=== PATIENT | female | born 2000 | race African-American/Black ===

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

== ENCOUNTER 2018-02-21 04:46 | Emergency (ER) | payer OTHER ==
[~2018-02-21] VITALS: Ht 160 cm; Wt 77.1 kg
[~2018-02-21 04:46] MED LIST changes: +PREDNISONE 20 M20 MG PO; +ZYRTEC10 M2 PO
[2018-02-21 06:11] VITALS: BP 119/71
== END 2018-02-21 06:12 | disposition home or self-care (01) ==
LOC: ER 04:46
DX: J06.9 Acute upper respiratory infection, unspecified (principal); J45.901 Unspecified asthma with (acute) exacerbation; R51 Headache

== ENCOUNTER 2018-07-16 09:19 | Emergency (ER) | payer OTHER ==
[~2018-07-16] VITALS: Ht 162.6 cm; Wt 83.9 kg
[2018-07-16 09:51] LABS: URINE BILIRUBIN NEGATIVE (Negative); URINE BLOOD NEGATIVE (Negative); URINE CLARITY CLEAR; URINE COLOR YELLOW; URINE GLUCOSE-RANDOM* NEGATIVE (Negative); URINE KETONES 1+ (Negative); URINE LEUKOCYTES-REFLEX NEGATIVE (Negative); URINE NITRITE-REFLEX NEGATIVE (Negative); URINE PROTEIN (DIPSTICK) TRACE (Negative); URINE SPECIFIC GRAVITY 1.015 (1.005-1.035); URINE UROBILINOGEN 0.2 E.U./dl (0.2-1.0)
[2018-07-16 10:48] LABS: ABSOLUTE NEUTROPHILS 8.1 thou/uL (1.4-8.2); BASOPHILS 0.4 % (0.0-2.0); EOSINOPHILS 1.5 % (0.0-3.0); HEMATOCRIT 39.2 % (37.0-47.0); HEMOGLOBIN 13.1 gm/dL (12.0-15.0); LYMPHOCYTES 17.7 % (24.0-44.0); MCH 29.6 pg (26.0-34.0); MCHC 33.5 g/dL (28.0-37.0); MCV 88.6 fL (80.0-100.0); MONOCYTES 5.6 % (1.0-8.0); PLATELET COUNT 257 thou/uL (150-400); POLYS 74.8 % (36.0-66.0); RBC 4.42 mil/uL (4.20-5.00); RDW 15.1 % (10.5-14.5); WBC 10.9 thou/uL (4.0-11.0)
[2018-07-16 10:51] LABS: CALCIUM 8.7 mg/dL (8.5-10.1); CREATININE 0.7 mg/dL (0.6-1.0); POTASSIUM 3.8 mmol/L (3.5-5.1)
[2018-07-16 10:57] LABS: ALBUMIN 3.8 g/dL (3.4-5.0); TOTAL BILIRUBIN 0.5 mg/dL (<0.1-1.0); TOTAL PROTEIN 7.7 g/dL (6.4-8.2)
[2018-07-16] MEDS ORDERED: PHENERGAN 25 MG25 M1 PO (13:15)
[2018-07-16] MEDS ORDERED: VENTOLIN HFA 1818 GM INH (13:15)
[2018-07-16] MEDS ORDERED: VITAFOL-OB+DHA1 EACH PO (13:15)
[2018-07-16 13:23] VITALS: BP 113/60
== END 2018-07-16 13:24 | disposition home or self-care (01) ==
LOC: ER 09:19
PROVIDERS: Emergency Medicine; Physician Assistant
DX: O21.8 Other vomiting complicating pregnancy (principal); O26.891 Other specified pregnancy related conditions, first trimester; R19.7 Diarrhea, unspecified; R10.84 Generalized abdominal pain; O99.89 Other specified diseases and conditions complicating pregnancy, childbirth and the puerperium; M54.5 Low back pain; Z3A.01 Less than 8 weeks gestation of pregnancy

== ENCOUNTER 2019-04-03 11:19 | Emergency (ER) | payer OTHER ==
[~2019-04-03] VITALS: Ht 165.1 cm; Wt 78.0 kg
[~2019-04-03 11:19] MED LIST changes: +PHENERGAN 25 MG25 M1 PO; +VENTOLIN HFA 1818 GM INH; +VITAFOL-OB+DHA1 EACH PO
[2019-04-03] MEDS ORDERED: BIRTH CONTROL (12:02)
[2019-04-03 14:01] LABS: ABSOLUTE NEUTROPHILS 12.8 thou/uL (1.4-8.2); BASOPHILS 0.3 % (0.0-2.0); EOSINOPHILS 0.3 % (0.0-3.0); HEMATOCRIT 37.8 % (37.0-47.0); HEMOGLOBIN 12.2 gm/dL (12.0-15.0); LYMPHOCYTES 6.8 % (24.0-44.0); MCH 28.6 pg (26.0-34.0); MCHC 32.4 g/dL (28.0-37.0); MCV 88.2 fL (80.0-100.0); MONOCYTES 4.4 % (1.0-8.0); PLATELET COUNT 229 thou/uL (150-400); POLYS 88.2 % (36.0-66.0); RBC 4.28 mil/uL (4.20-5.00); RDW 14.5 % (10.5-14.5); WBC 14.6 thou/uL (4.0-11.0)
[2019-04-03 14:03] LABS: URINE BLOOD 1+ (Negative); URINE CLARITY CLEAR; URINE COLOR YELLOW; URINE GLUCOSE-RANDOM* NEGATIVE (Negative); URINE KETONES 3+ (Negative); URINE LEUKOCYTES-REFLEX TRACE (Negative); URINE NITRITE-REFLEX NEGATIVE (Negative); URINE PROTEIN (DIPSTICK) 1+ (Negative); URINE SPECIFIC GRAVITY 1.025 (1.005-1.035)
[2019-04-03 14:06] LABS: ICTOTEST (BILI CONFIRMATORY) Negative (Negative); URINE BILIRUBIN NEGATIVE (Negative)
[2019-04-03 14:11] LABS: CALCIUM 8.8 mg/dL (8.5-10.1); POTASSIUM 3.2 mmol/L (3.5-5.1)
[2019-04-03 14:18] LABS: BACTERIA-REFLEX None Seen /HPF (None Seen); CASTS None Seen /LPF (None Seen); CRYSTALS None Seen /LPF (None Seen); MUCUS >6 Heavy strn/LPF (None Seen); SQUAMOUS None Seen /LPF (0-3); URINE RBC 3-10 Few /HPF (0-2); URINE WBC-REFLEX 0-5 Rare /HPF (0-5)
[2019-04-03] MEDS ORDERED: ZOFRAN ODT4 MG DISSOLVE (15:40)
[2019-04-03] MEDS ORDERED: ZPAK PO (15:40)
[2019-04-03 15:44] VITALS: BP 117/66
== END 2019-04-03 15:46 | disposition home or self-care (01) ==
LOC: ER 11:19
PROVIDERS: Physician Assistant
DX: J18.9 Pneumonia, unspecified organism (principal); E86.0 Dehydration; R11.2 Nausea with vomiting, unspecified; F17.200 Nicotine dependence, unspecified, uncomplicated; Z98.890 Other specified postprocedural states; Z91.010 Allergy to peanuts

== ENCOUNTER 2019-06-17 04:03 | Emergency (ER) | payer OTHER ==
[~2019-06-17] VITALS: Ht 162.6 cm; Wt 74.8 kg
[~2019-06-17 04:03] MED LIST changes: +BIRTH CONTROL; +ZOFRAN ODT4 MG DISSOLVE; +ZPAK PO
[2019-06-17 05:09] LABS: URINE BILIRUBIN NEGATIVE (Negative); URINE BLOOD NEGATIVE (Negative); URINE CLARITY CLEAR; URINE COLOR YELLOW; URINE GLUCOSE-RANDOM* NEGATIVE (Negative); URINE KETONES NEGATIVE (Negative); URINE LEUKOCYTES-REFLEX TRACE (Negative); URINE NITRITE-REFLEX NEGATIVE (Negative); URINE PROTEIN (DIPSTICK) NEGATIVE (Negative); URINE UROBILINOGEN 0.2 E.U./dl (0.2-1.0)
[2019-06-17 05:26] LABS: ALBUMIN 3.2 g/dL (3.4-5.0); CALCIUM 8.4 mg/dL (8.5-10.1); CREATININE 0.8 mg/dL (0.6-1.0); DIRECT BILIRUBIN 0.1 mg/dL (<0.1-0.2); TOTAL BILIRUBIN 0.2 mg/dL (<0.1-1.0); TOTAL PROTEIN 8.1 g/dL (6.4-8.2)
[2019-06-17 05:27] LABS: AMP/METHAMP Negative (Negative); BARBITURATES Negative (Negative); BENZODIAZEPINES Negative (Negative); COCAINE Negative (Negative); METHADONE Negative (Negative); OPIATES Negative (Negative); PCP Negative (Negative)
[2019-06-17 05:28] LABS: POTASSIUM 2.7 mmol/L (3.5-5.1)
[2019-06-17] MEDS ORDERED: KLOR-CON 1010 MEQ PO (05:59)
[2019-06-17 08:44] VITALS: BP 112/71
== END 2019-06-17 08:44 | disposition home or self-care (01) ==
LOC: ER 04:03
PROVIDERS: Emergency Medicine
DX: E87.5 Hyperkalemia (principal); F10.129 Alcohol abuse with intoxication, unspecified; Z87.891 Personal history of nicotine dependence; Z91.010 Allergy to peanuts; Z98.890 Other specified postprocedural states

== ENCOUNTER 2019-06-24 10:37 | Emergency (ER) | payer OTHER ==
[~2019-06-24] VITALS: Ht 162.6 cm; Wt 74.8 kg
[~2019-06-24 10:37] MED LIST changes: +KLOR-CON 1010 MEQ PO
[2019-06-24 11:04] LABS: EOSINOPHILS 3.8 % (0.0-3.0); HEMATOCRIT 40.6 % (37.0-47.0); HEMOGLOBIN 13.4 gm/dL (12.0-15.0); LYMPHOCYTES 29.7 % (24.0-44.0); MCHC 32.9 g/dL (28.0-37.0); MCV 85.3 fL (80.0-100.0); MONOCYTES 7.4 % (1.0-8.0); PLATELET COUNT 423 thou/uL (150-400); POLYS 58.1 % (36.0-66.0); RBC 4.77 mil/uL (4.20-5.00); RDW 16.8 % (10.5-14.5); WBC 8.5 thou/uL (4.0-11.0)
[2019-06-24 11:11] LABS: URINE BILIRUBIN NEGATIVE (Negative); URINE BLOOD 3+ (Negative); URINE CLARITY CLEAR; URINE COLOR YELLOW; URINE GLUCOSE-RANDOM* NEGATIVE (Negative); URINE KETONES 1+ (Negative); URINE NITRITE-REFLEX NEGATIVE (Negative); URINE PROTEIN (DIPSTICK) TRACE (Negative); URINE UROBILINOGEN 0.2 E.U./dl (0.2-1.0)
[2019-06-24 11:13] LABS: URINE LEUKOCYTES-REFLEX 1+ (Negative)
[2019-06-24 11:20] LABS: AMP/METHAMP POSITIVE (Negative); BARBITURATES Negative (Negative); BENZODIAZEPINES Negative (Negative); COCAINE Negative (Negative); METHADONE Negative (Negative); OPIATES Negative (Negative); PCP Negative (Negative)
[2019-06-24 11:24] LABS: ALBUMIN 4.5 g/dL (3.4-5.0); CALCIUM 9.7 mg/dL (8.5-10.1); CREATININE 0.8 mg/dL (0.6-1.0); TOTAL BILIRUBIN 0.5 mg/dL (<0.1-1.0); TOTAL PROTEIN 9.5 g/dL (6.4-8.2)
[2019-06-24 11:27] LABS: POTASSIUM 2.7 mmol/L (3.5-5.1)
[2019-06-24 11:33] LABS: CASTS None Seen /LPF (None Seen); CRYSTALS None Seen /LPF (None Seen); SQUAMOUS 4-10 Moderate /LPF (0-3)
[2019-06-24 11:34] LABS: BACTERIA-REFLEX 1-9 Few /HPF (None Seen); URINE RBC >20 Many /HPF (0-2); URINE WBC-REFLEX 6-15 Few /HPF (0-5)
[2019-06-24 11:59] LABS: MAGNESIUM 1.7 mg/dL (1.8-2.4); TROPONIN-I <0.06 ng/mL (<0.06)
--- NOTE | 2019-06-24 13:08 | EKG ---
[facility] [place] [address] ELECTROCARDIOGRAM REPORT Name: ANTHONY JEROME Room #: [facility]#: [id number] Admission: 06/24/19 Attend Phys: Discharge: Date of : [birth year] Report #: [id number] THIS REPORT FOR: cc: FAM - No family physician/PCP FAM - No family physician/PCP Zack Sharp MD ~ THIS REPORT FOR: //name// [facility] ED Test Date: 2019-06-24 Test Time: 11:13:41 Pat Name: ANTHONY JEROME Department: Room: Gender: F [employer]: DALE : 2000 Requested By: Peyton Garza Order Number: [id number] MD: Zack Sharp Measurements Intervals [place] Rate: 112 P: 58 MT: 126 QRS: 10 QRSD: 106 T: -15 QT: 356 QTc: 486 Interpretive Statements Sinus tachycardia Probable left ventricular hypertrophy Borderline T abnormalities, inferior leads No previous ECG available for comparison Electronically Signed On 06-24-2019 13:07:48 DIRECTOR OF WORKFORCE DEVELOPMENT by Zack Sharp [email or web address] <ELECTRONICALLY SIGNED> By: Zack Sharp MD 06/24/19 1307 1113 1113 Zakc Sharp MD /EPI
[2019-06-24] MEDS ORDERED: POTASSIUM20 PO (13:59)
[2019-06-24 14:25] VITALS: BP 148/101
== END 2019-06-24 14:26 | disposition home or self-care (01) ==
LOC: ER 10:37
PROVIDERS: Physician Assistant
DX: F15.129 Other stimulant abuse with intoxication, unspecified (principal); F10.129 Alcohol abuse with intoxication, unspecified; E87.6 Hypokalemia; E83.42 Hypomagnesemia; F17.210 Nicotine dependence, cigarettes, uncomplicated; Z98.890 Other specified postprocedural states; Z91.010 Allergy to peanuts; Y90.3 Blood alcohol level of 60-79 mg/100 ml

== ENCOUNTER 2019-12-27 14:12 | Emergency (ER) | payer OTHER ==
[~2019-12-27] VITALS: Ht 162.6 cm; Wt 69.8 kg
[~2019-12-27 14:12] MED LIST changes: +POTASSIUM20 PO
[2019-12-27 15:45] VITALS: BP 134/81
[2019-12-27] MEDS ORDERED: VALTREX 500 MG500 M1 PER TUBE (17:05)
[2019-12-27] MEDS ORDERED: MAGIC MOUTHWASH SWISH&SPIT (17:05)
== END 2019-12-27 17:25 | disposition home or self-care (01) ==
LOC: ER 14:12
DX: U07.1 COVID-19 (principal); B00.2 Herpesviral gingivostomatitis and pharyngotonsillitis; R05 Cough; J02.0 Streptococcal pharyngitis; Z79.899 Other long term (current) drug therapy; Z91.010 Allergy to peanuts

== ENCOUNTER 2020-11-06 10:34 | Emergency (ER) | payer OTHER ==
[~2020-11-06] VITALS: Ht 162.6 cm; Wt 72.6 kg
[~2020-11-06 10:34] MED LIST changes: +MAGIC MOUTHWASH SWISH&SPIT; +VALTREX 500 MG500 M1 PER TUBE
[2020-11-06 12:44] LABS: ABSOLUTE NEUTROPHILS 6.2 thou/uL (1.4-8.2); BASOPHILS 0.5 % (0.0-2.0); EOSINOPHILS 2.9 % (0.0-3.0); HEMATOCRIT 34.3 % (37.0-47.0); HEMOGLOBIN 11.6 gm/dL (12.0-15.0); LYMPHOCYTES 16.2 % (24.0-44.0); MCH 31.7 pg (26.0-34.0); MCHC 33.8 g/dL (28.0-37.0); MCV 93.7 fL (80.0-100.0); MONOCYTES 6.6 % (1.0-8.0); PLATELET COUNT 206 thou/uL (150-400); POLYS 73.8 % (36.0-66.0); RBC 3.66 mil/uL (4.20-5.00); RDW 15.3 % (10.5-14.5); WBC 8.4 thou/uL (4.0-11.0)
[2020-11-06 13:33] LABS: URINE BILIRUBIN NEGATIVE (Negative); URINE BLOOD 2+ (Negative); URINE CLARITY CLEAR; URINE COLOR YELLOW; URINE GLUCOSE-RANDOM* NEGATIVE (Negative); URINE KETONES NEGATIVE (Negative); URINE LEUKOCYTES-REFLEX NEGATIVE (Negative); URINE NITRITE-REFLEX NEGATIVE (Negative); URINE PROTEIN (DIPSTICK) NEGATIVE (Negative); URINE SPECIFIC GRAVITY 1.025 (1.005-1.035); URINE UROBILINOGEN 0.2 E.U./dl (0.2-1.0)
[2020-11-06 13:42] LABS: SQUAMOUS 0-3 Few /LPF (0-3)
[2020-11-06 13:43] LABS: BACTERIA-REFLEX None Seen /HPF (None Seen); CASTS None Seen /LPF (None Seen); CRYSTALS None Seen /LPF (None Seen); URINE RBC 3-10 Few /HPF (NONE SEEN); URINE WBC-REFLEX None Seen /HPF (0-5)
[2020-11-06 14:17] VITALS: BP 146/94
== END 2020-11-06 14:17 | disposition home or self-care (01) ==
LOC: ER 10:34
PROVIDERS: Nurse Practitioner
DX: O03.9 Complete or unspecified spontaneous abortion without complication (principal); Z98.890 Other specified postprocedural states; Z79.899 Other long term (current) drug therapy; Z91.010 Allergy to peanuts; Z3A.09 9 weeks gestation of pregnancy

== ENCOUNTER 2020-12-30 11:41 | Inpatient (IN) | payer OTHER ==
[~2020-12-30] VITALS: Ht 162.6 cm; Wt 68.1 kg
[2020-12-30 11:52] VITALS: BP 128/92
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
[2020-12-30 12:45] LABS: ABSOLUTE NEUTROPHILS 7.6 thou/uL (1.4-8.2); BASOPHILS 0.6 % (0.0-2.0); EOSINOPHILS 0.3 % (0.0-3.0); HEMATOCRIT 45.5 % (37.0-47.0); HEMOGLOBIN 14.6 gm/dL (12.0-15.0); LYMPHOCYTES 13.2 % (24.0-44.0); MCH 30.8 pg (26.0-34.0); MCV 96.2 fL (80.0-100.0); MONOCYTES 7.8 % (1.0-8.0); PLATELET COUNT 338 thou/uL (150-400); POLYS 78.1 % (36.0-66.0); RBC 4.73 mil/uL (4.20-5.00); RDW 15.1 % (10.5-14.5); WBC 9.8 thou/uL (4.0-11.0)
[2020-12-30 12:55] LABS: ALBUMIN 4.5 g/dL (3.4-5.0); CALCIUM 9.3 mg/dL (8.5-10.1); CREATININE 1.3 mg/dL (0.6-1.0); DIRECT BILIRUBIN 0.2 mg/dL (<0.1-0.2); POTASSIUM 4.4 mmol/L (3.5-5.1); TOTAL PROTEIN 9.9 g/dL (6.4-8.2)
[2020-12-30 13:30] LABS: BE(vivo) -21.2 mmol/L (-2 to +3); HCO3 5.8 mmol/L (22.0-26.0); sO2 97.5 % (92.0-98.0)
[2020-12-30 13:31] LABS: PCO2 17.8 mmHg (35.0-45.0); pH 7.132 (7.360-7.450)
[2020-12-30 14:33] LABS: URINE BILIRUBIN 1+ (Negative); URINE BLOOD 2+ (Negative); URINE CLARITY CLEAR; URINE COLOR YELLOW; URINE GLUCOSE-RANDOM* NEGATIVE (Negative); URINE KETONES 3+ (Negative); URINE LEUKOCYTES-REFLEX NEGATIVE (Negative); URINE NITRITE-REFLEX NEGATIVE (Negative); URINE PROTEIN (DIPSTICK) 2+ (Negative); URINE SPECIFIC GRAVITY >= 1.030 (1.005-1.035); URINE UROBILINOGEN 0.2 E.U./dl (0.2-1.0)
[2020-12-30 14:37] LABS: ICTOTEST (BILI CONFIRMATORY) Positive (Negative)
[2020-12-30 14:40] VITALS: BP 144/94
[2020-12-30 14:52] LABS: SQUAMOUS >10 Many /LPF (0-3)
[2020-12-30 14:53] LABS: BACTERIA-REFLEX 1-9 Few /HPF (None Seen); CASTS None Seen /LPF (None Seen); CRYSTALS None Seen /LPF (None Seen); URINE RBC 3-10 Few /HPF (NONE SEEN); URINE WBC-REFLEX 0-5 Rare /HPF (0-5)
[2020-12-30 15:59] VITALS: BP 157/84
[2020-12-30 16:20] VITALS: BP 148/88
[2020-12-30 20:15] VITALS: BP 139/83
[2020-12-31] VITALS (9 sets, daily range): BP systolic 120–157; BP diastolic 83–116
--- NOTE | 2020-12-31 01:19 | NUR ---
PT NOTIFIED STAFF WITH COMPLAINT OF PAIN AND NAUSEA WITH X1 OBSERVED EPISODE OF EMESIS. PT REPORTS PAIN WORSENS WITH NAUSEA AND VOMITING. PT GIVEN IV MORPHINE AND IV ZOFRAN. SHORTLY AFTER, PT NOTIFIED STAFF WITH COMPLAINT OF DRY MOUTH. LOZENGES PROVIDED, PT IMMEDIATELY NAUSEATED WITHOUT EMESIS. ONCALL BUILDING MAINTENANCE SUPERINTENDENT NOTIFIED, RECEIVED ORDERS FOR ONETIME IV PUSH 10MG COMPAZINE. REPORT GIVEN TO ASSIGNED NURSE. FREQUENT MONITORING WILL CONTINUE.
--- NOTE | 2020-12-31 02:47 | NUR ---
NURSE CALLED TO ROOM BY PATIENT DUE TO COMPLAINTS OF "FEELING LIKE I'M GONNA PASS OUT." UPON ENTERING ROOM PATIENT ASKING FOR WATER WHICH NURSE WAS UNABLE TO PROVIDE DUE TO NPO STATUS, AND PAIN MEDICATION. BLOOD PRESSURE AND OXYGEN SATURATION STABLE. THIS NURSE TO ASK PRIMARY NURSE IF ICE CHIPS CAN SAFELY BE PROVIDED.
[2020-12-31 05:13] LABS: ALBUMIN 3.6 g/dL (3.4-5.0); CALCIUM 8.3 mg/dL (8.5-10.1); CREATININE 1.2 mg/dL (0.6-1.0); POTASSIUM 5.1 mmol/L (3.5-5.1); TOTAL BILIRUBIN 0.7 mg/dL (0.2-1.0); TOTAL PROTEIN 8.6 g/dL (6.4-8.2)
[2020-12-31 17:01] LABS: CALCIUM 8.7 mg/dL (8.5-10.1); CREATININE 1.6 mg/dL (0.6-1.0)
[2020-12-31 17:23] LABS: % SATURATION 8 % (20-39); IRON 20 ug/dL (50-170); TIBC 265 ug/dL (250-450)
[2020-12-31 20:51] LABS: BE(vivo) -9.9 mmol/L (-2 to +3); PCO2 27.8 mmHg (35.0-45.0); PO2 88.8 mmHg (80.0-100.0); sO2 96.3 % (92.0-98.0)
[2020-12-31 21:38] LABS: AMP/METHAMP POSITIVE (Negative); BARBITURATES Negative (Negative); BENZODIAZEPINES Negative (Negative); COCAINE POSITIVE (Negative); METHADONE Negative (Negative); OPIATES Negative (Negative); PCP POSITIVE (Negative)
[2021-01-01] VITALS (8 sets, daily range): BP systolic 132–153; BP diastolic 84–110
[2021-01-01 03:33] LABS: HEMATOCRIT 53.3 % (37.0-47.0); MCH 30.9 pg (26.0-34.0); MCHC 33.2 g/dL (28.0-37.0); MCV 93.1 fL (80.0-100.0); RBC 5.72 mil/uL (4.20-5.00); RDW 14.8 % (10.5-14.5); WBC 15.8 thou/uL (4.0-11.0)
[2021-01-01 03:36] LABS: HEMOGLOBIN 17.7 gm/dL (12.0-15.0)
[2021-01-01 04:00] LABS: LIPASE 5327 U/L (73-393)
[2021-01-01 04:01] LABS: CALCIUM 8.7 mg/dL (8.5-10.1); CREATININE 1.1 mg/dL (0.6-1.0); MAGNESIUM 2.3 mg/dL (1.8-2.4); TOTAL BILIRUBIN 0.4 mg/dL (0.2-1.0); TOTAL PROTEIN 7.6 g/dL (6.4-8.2)
--- NOTE | 2021-01-01 05:58 | NUR ---
PATIENTS CARES WERE ASSUMED AT SHIFT CHANGE. PATIENT WAS ASSESSED AND MEDS WRE PASSED. PATIENT HAD A CIWA ACTOVATED AND HER NUMBERS HAVE IMPROVED DURING THIS SHIFT. SHE HAD A DELTA VARENT Hgb 17.7 UP, PLT DOWN 218. WHILE THIS IS NOT IN NORMAL LIMITS SHE IS IMPROVING SLOWLY. BICARB CONTINUES TO RUN AT 125CC/HR. DARIAN NURSE DID AND EXAM AT THE BEGINING OF THIS SHIFT AND COLLECTED EVIDENCE. MICHAEL REP HERE TO SEE HER WELL AND ASSISSED IN HER SUPPORT. THE [facility] CONSULT WAS PLACED YESTERDAY AND THEY SHOULD SEE HER TODAY FOR STD TREATMENT AND EVALUATION WITH A VAG EXAM. ROUNDS WERE DONE. THE BED IS IN A LOW AND LOCKED POSITION
[2021-01-01 06:33] LABS: PCO2 30.4 mmHg (35.0-45.0); PO2 89.3 mmHg (80.0-100.0); pH 7.414 (7.360-7.450)
--- NOTE | 2021-01-01 15:43 | NUR ---
Assumed pt care at 7am.Pt in bed sleeping on and off but arousable.Assessment completed.vss.Dr Moses here,order noted.Received call from Pacu that pt pt will be picked up for Egd around 11am.Pt notified.Mom here to visit,updates given.Pt left for gi lab aroud 1130am and returned around 1345 in stable condition.Ice chips given.Pt c/o abdominal pain and requested for morphine ivp.It was given with relief.Ivp infusing as ordered. Will continue to monitor.
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
[2021-01-02 00:06] LABS: IgG 1505 mg/dL (586-1602)
--- NOTE | 2021-01-02 01:32 | NUR ---
ASSUMED CARE OF PT AT 1900, PT A/O X4. PT C/O ABDOMINAL PAIN, MEDICATION GIVEN WITH PARTIAL RELIEF. ASSESSMENT COMPLETED NOTED. PT TOLERATED ICE CHIPS WELL, NAUSEA X 1 WITH RELIEF WITH MEDICATION. WILL CONTINUE TO WORK TOWARDS PT'S POC.
[2021-01-02 04:34] VITALS: BP 130/77
[2021-01-02 07:40] VITALS: BP 108/71
--- NOTE | 2021-01-02 08:50 | NUR ---
Assess due to dx pancreatitis. Hx etoh abuse, polysubstance use. Wt down about 5 lb from reported usual-admitted dehydrated. EGD with mild gastritis, esophagitis. Lipase trending downwards and diet has been advanced to clear liquids. Psych consulted. On thiamine and electrolyte replacement. Low nutrition risk with appropriate nutrition interventions in place.
[2021-01-02 09:09] LABS: HAV IgM AB (ANTI-HAV IgM) Negative (Negative); HEPATITIS B SURFACE AG Negative (Negative); HEPATITIS C VIRUS AB <0.1 (0.0-0.9)
[2021-01-02 09:09] LABS: HAV IgM AB (ANTI-HAV IgM) Negative (Negative); HEPATITIS B SURFACE AG Negative (Negative); HEPATITIS C VIRUS AB 0.1 (0.0-0.9); HIV ANTIBODY Non Reactive (Non Reactive)
[2021-01-02 11:20] VITALS: BP 90/61
--- NOTE | 2021-01-02 14:36 | P ---
[facility] [place] [address] [place] [address] PROCEDURE REPORT Name: ANTHONY JEROME Room #: 218-P ADM IN M.R.#: [id number] Admission: 12/30/20 Attend Phys: Forest Moses Discharge: Date of : [birth year] Report #: [id number] THIS REPORT FOR: cc: FAM - No family physician/PCP FAM - No family physician/PCP Paul Mccabe MD ~ cc: Forest Moses MD DATE OF SERVICE: 01/01/2021 DATE OF PROCEDURE: 01/01/2021 PROCEDURE PERFORMED: Upper endoscopy with biopsies. HISTORY OF PRESENT ILLNESS: The patient is a 21-year-old female who was admitted with abdominal pain, nausea, vomiting and hematemesis. Symptoms started on Thursday. The patient was drinking a significant amount of alcohol, was noted to have pancreatitis on admission. This is her first episode of pancreatitis. Her lipase today is 5327. That is down from 13,000 yesterday, hemoglobin 17.7 today, was 14.6 on admission. Still complains of abdominal pain and nausea. No further emesis. Plan is for upper endoscopy. DESCRIPTION OF PROCEDURE: The risks and benefits of the procedure were explained to the patient, those risks including but not limited to bleeding, perforation and the risk of sedation. She understood these risks and gave informed consent. Sedation was given using propofol per anesthesia. Next, using a standard Olympus upper endoscope, the scope was placed in the patient's mouth and advanced under direct vision through the esophagus, stomach and into the second portion of the duodenum. The larynx was normal in appearance. The upper and mid esophagus was normal. In the distal esophagus at the GE junction, grade B erosive esophagitis was noted with 2 ulcerations. It is possible she had a Marine-Palafox tear that is now in the process of healing. There was no evidence of clot or active bleeding. Overall, there was a mild diffuse gastritis. Biopsies were obtained to rule out H. pylori. No evidence of blood throughout the exam today. The pylorus was normal and patent. The duodenal bulb, first and second portion were all normal. The scope was then withdrawn and the procedure was terminated and the patient tolerated the procedure well. IMPRESSION: 1. Grade B erosive esophagitis. This may be secondary to reflux or possible recent Marine-Palafox tear that is healing. No evidence of active bleeding. Likely source of recent hematemesis. 2. Mild gastritis. 3. Otherwise, normal upper endoscopy. RECOMMENDATIONS: [facility] [address] [place] [address] PROCEDURE REPORT Name: QUEENIEANTHONY Room #: 218-P [facility] IN .R.#: [id number] Admission: 12/30/20 Attend Phys: Forest Moses Discharge: Date of : [birth year] Report #: [id number] 1. Await biopsy results. 2. Continue PPI therapy as far as the patient's pancreatitis. Her lipase is improving. We will slowly advance diet as tolerated and continue to monitor her lipase and labs closely. Thank you for allowing me to participate in her care. <ELECTRONICALLY SIGNED> By: Paul Mccabe MD 01/02/21 1436 1201 [id number] Paul Mccabe MD /nt
[2021-01-02 15:08] LABS: METHANOL < 0.010 g/dL (0.000-0.010)
[2021-01-02 15:15] VITALS: BP 99/51
[2021-01-02 16:30] VITALS: BP 99/51
--- NOTE | 2021-01-02 16:35 | NUR ---
met with patient. Gave her resources for [employer]. Encouraged her to call prior to leaving hospital. Patient has 3 children ages 2, 3 and 4.
[2021-01-02 20:40] VITALS: BP 120/67
[2021-01-03 03:17] LABS: HEMATOCRIT 32.1 % (37.0-47.0); MCH 31.4 pg (26.0-34.0); MCHC 33.8 g/dL (28.0-37.0); MCV 92.9 fL (80.0-100.0); RBC 3.45 mil/uL (4.20-5.00); RDW 14.5 % (10.5-14.5); WBC 10.8 thou/uL (4.0-11.0)
[2021-01-03 03:35] LABS: ALBUMIN 2.1 g/dL (3.4-5.0); CALCIUM 7.5 mg/dL (8.5-10.1); CREATININE 0.8 mg/dL (0.6-1.0); HEMOGLOBIN 10.8 gm/dL (12.0-15.0); MAGNESIUM 1.5 mg/dL (1.8-2.4); TOTAL BILIRUBIN 0.8 mg/dL (0.2-1.0); TOTAL PROTEIN 5.6 g/dL (6.4-8.2)
[2021-01-03 03:37] LABS: POTASSIUM 2.6 mmol/L (3.5-5.1)
[2021-01-03 04:55] VITALS: BP 123/68
--- NOTE | 2021-01-03 05:43 | NUR ---
ASSUMED CARE OF PT AT 1900, PT ASSESSMENT COMPLETED NOTED. PT CONTINUES TO C/O ABDOMINAL PAIN 01/11 WITH PARTIAL RELIEF WITH MEDICATION. PT HAD CRITICAL K+ LEVEL OF 2.6, REPRODUCTIVE HEALTHCARE ASSISTANT NOTIFIED OF RESULTS, ORDERS RECIEVED AND INITIATED. WILL CONTINUE TO WORK TOWARDS PT'S POC.
[2021-01-03 08:24] VITALS: BP 115/75
[2021-01-03 12:21] VITALS: BP 104/67
[2021-01-03 16:00] VITALS: BP 109/75
--- NOTE | 2021-01-03 16:06 | PATH ---
[facility] [address] [place] [address] PATHOLOGY RPT PROCEDURE Name: ANTHONY JEROME ASHFORD Room #: 218-P ADM IN M.R.#: [id number] Admission: 12/30/20 Date of : [birth year] Discharge: Report #: [id number] Path Case #: [id number] [facility] Accession Number: [id number] . 01 Material submitted: . gastrointestinal site - GASTRIC BIOPSY R/O H. PYLORI . 01 Clinical history: . HEMATOCHEZIA, ABD PAIN, ESOPHAGITIS, GASTRITIS SEVERE ACIDOSIS . 02 Diagnosis: Gastric mucosa, gastric, rule out H. pylori, endoscopic biopsy: - Mild reactive gastropathy with focal active gastritis. - Negative for intestinal metaplasia or atrophy. - Negative for Helicobacter pylori (properly controlled immunohistochemical performed). (IUV:pit; 01/03/2021) QTP 01/03/2021 1331 Local . 02 Electronically signed: . Lucía Knutson MD, Pathologist NPI- [id number] . 01 Gross description: . The specimen is submitted in formalin, labeled "Anthony Jerome, gastric biopsy". Received are 4 segments of pale madrigal tissue ranging in size from 0.1 to 0.9 cm in maximum dimensions. The specimen is submitted in cassette A1. ([facility]; 01/02/2021) NRI/NRI 01/02/2021 1137 Local . 02 Pathologist provided ICD-10: K31.9, K29.70 . 02 CPT . 411497, A77300 Specimen Comment: A courtesy copy of this report has been sent to [phone] Specimen Comment: [phone] Specimen Comment: Report sent to / DR CHACON Performed at: [address] [id number] MD Nitin Powell MD Phone: [phone] Performed at: 02 [facility] [address] [place] [address] PATHOLOGY RPT PROCEDURE Name: ANTHONY JEROME ASHFORD Room #: 218-P ADM IN M.R.#: [id number] Admission: 12/30/20 Date of : [birth year] Discharge: Report #: [id number] Path Case #: [id number] [address] [place] [id number] MD Lucía Knutson MD Phone: [phone]
[2021-01-03 16:35] LABS: URINE BLOOD 3+ (Negative); URINE CLARITY CLOUDY; URINE COLOR YELLOW; URINE GLUCOSE-RANDOM* NEGATIVE (Negative); URINE KETONES TRACE (Negative); URINE LEUKOCYTES NEGATIVE (Negative); URINE NITRITE NEGATIVE (Negative); URINE PROTEIN (DIPSTICK) TRACE (Negative); URINE UROBILINOGEN >= 8.0 E.U./dl (0.2-1.0)
[2021-01-03 16:37] LABS: ICTOTEST (BILI CONFIRMATORY) Negative (Negative); URINE BILIRUBIN NEGATIVE (Negative)
[2021-01-03 16:48] LABS: SQUAMOUS 0-3 Few /LPF (0-3)
[2021-01-03 16:49] LABS: BACTERIA 1-9 Few /HPF (None Seen); CASTS None Seen /LPF (None Seen); CRYSTALS None Seen /LPF (None Seen); URINE RBC >20 Many /HPF (NONE SEEN); URINE WBC 1-5 Rare /HPF (NONE SEEN)
--- NOTE | 2021-01-03 17:37 | NUR ---
ASSUMED CARE OF THIS PATIENT AT 0700. PT AXOX4. PT ASSESSMENT COMPLETED AND DOCUMENTED. PT C/O ABDOMINAL PAIN; ADMINISTERED PRN PAIN MEDICATION. PT STATED SHE HAD RELIEF WITH THE PAIN MEDICATION. ENCOURAGED PATIENT TO AMBULATE DURING THE DAY WITH ASSISTANCE. PROVIDER ORDERED URINE SAMPLE WHICH WAS COLLECTED. PT DENIES ANY OTHER NEEDS AT THIS TIME. FALL PRECAUTIONS ARE IN PLACE AND CALL LIGHT WITHIN REACH.
[2021-01-03 20:02] VITALS: BP 113/74
--- NOTE | 2021-01-04 03:42 | NUR ---
ASSUMED CARE OF PT AT 1900, PT IS A/O X4 WITH VISITOR AT BEDSIDE. PT CONTINUES TO C/O ABDOMINAL PAIN, MEDICATION GIVEN WITH PARTIAL RELIEF. PT INFORMED OF THE IMPORTANCE OF INCREASED AMBULATION, INCREASED PO FLUID INTAKE AND THE ROLL THAT NARCOTIC PLAY WITH CONSTIPATION. PT STATES UNDERSTANDING WILL CONTINUE TO WORK TOWARDS PT'S POC.
[2021-01-04 04:38] VITALS: BP 117/75
[2021-01-04 05:50] LABS: CREATININE 0.7 mg/dL (0.6-1.0); POTASSIUM 3.5 mmol/L (3.5-5.1)
[2021-01-04 07:20] VITALS: BP 131/92
--- NOTE | 2021-01-04 11:16 | NUR ---
Possible dc over the holiday weekend pending her progress. Slowly adv diet, CIWA protocal,and up walking with RN. Pt given outpt conseling and ethol tx resources and encouraged to call for appt. No other dc planning needs indicated if dc'd over the weekend.
[2021-01-04 11:20] VITALS: BP 119/81
[2021-01-04 16:00] VITALS: BP 133/94
--- NOTE | 2021-01-04 17:54 | NUR ---
Assumed care of pt this AM. Pt is A&O x4, impuslive. Currently on RA. No BM today. Diet progressed to soft mechanical. Pt still c/o abd pain. Educated pt about water & ambulation to blast furnace keeper helper in BM. Ambulated in hallway, given miralax, & increased water intake. SA on monitor. Pt denies any other needs at this time.
[2021-01-04 19:52] VITALS: BP 134/93
[2021-01-05 03:38] VITALS: BP 145/91
--- NOTE | 2021-01-05 06:21 | NUR ---
PT SLEEPING ON AND OFF THRU THE NOC, PRN PAIN MEDS GIVEN FOR C/O ABDOMINAL PAIN, VSS, NO BM THIS SHIFT, REQUESTING RT TX FOR C/O SOA RECEIVED ORDER AND NOTIFIED RT, WILL CON'T TO MONITOR PER PPOC.
[2021-01-05] MEDS ORDERED: PROTONIX 20 MG20 M1 PO (09:48)
[2021-01-05] MEDS ORDERED: TRAZODONE HCL100 MG PO (09:48)
[2021-01-05] MEDS ORDERED: TRAMADOL 50 MG50 MG PO (09:49)
[2021-01-05 10:30] VITALS: BP 99/51
--- NOTE | 2021-01-05 13:00 | NUR ---
DISCHARGE NOTE: pt discharging after small BM today. Pt is A&O x4. All discharge instructions & presciprtions given to pt. All forms signed. IV & tele discontinued. Pt wheeled to ER entrance w/ mom to leave via personal car. No other concerns at this time.
== END 2021-01-05 13:04 | disposition home or self-care (01) | DRG 368 ==
LOC: ER 11:41 → EROBS 14:54 → 2N 14:54
PROVIDERS: Emergency Medicine; Nurse Practitioner; ADMIT Hospitalist; ATTEND Hospitalist
PROC: 0DB68ZX Excision of Stomach, Via Natural or Artificial Opening Endoscopic, Diagnostic (ICD-10-PCS; principal; 2021-01-01)
DX: K22.6 Gastro-esophageal laceration-hemorrhage syndrome (principal); K85.21 Alcohol induced acute pancreatitis with uninfected necrosis; K22.10 Ulcer of esophagus without bleeding; E87.4 Mixed disorder of acid-base balance; F10.239 Alcohol dependence with withdrawal, unspecified; K21.01 Gastro-esophageal reflux disease with esophagitis, with bleeding; E88.89 Other specified metabolic disorders; T73.0XXA Starvation, initial encounter; K29.70 Gastritis, unspecified, without bleeding; J45.909 Unspecified asthma, uncomplicated; E86.0 Dehydration; D50.9 Iron deficiency anemia, unspecified; K59.00 Constipation, unspecified; E87.6 Hypokalemia; F19.10 Other psychoactive substance abuse, uncomplicated; K76.0 Fatty (change of) liver, not elsewhere classified; R79.89 Other specified abnormal findings of blood chemistry; Y90.0 Blood alcohol level of less than 20 mg/100 ml; F17.200 Nicotine dependence, unspecified, uncomplicated; R13.10 Dysphagia, unspecified; F12.90 Cannabis use, unspecified, uncomplicated; X58.XXXA Exposure to other specified factors, initial encounter; Z20.822 Contact with and (suspected) exposure to COVID-19; Z98.891 History of uterine scar from previous surgery; Z79.899 Other long term (current) drug therapy; Z91.010 Allergy to peanuts; Z71.51 Drug abuse counseling and surveillance of drug abuser
CPT/HCPCS: 10081; 62110; 62900; 70005

== ENCOUNTER 2021-03-06 10:31 | Inpatient (IN) | payer OTHER ==
[~2021-03-06] VITALS: Ht 160 cm; Wt 70.3 kg
[~2021-03-06 10:31] MED LIST changes: +PROTONIX 20 MG20 M1 PO; +TRAMADOL 50 MG50 MG PO; +TRAZODONE HCL100 MG PO
[2021-03-06 10:36] VITALS: BP 138/90
[2021-03-06 10:49] LABS: URINE BLOOD 3+ (Negative); URINE COLOR YELLOW; URINE GLUCOSE-RANDOM* NEGATIVE (Negative); URINE KETONES 2+ (Negative); URINE NITRITE-REFLEX NEGATIVE (Negative); URINE PROTEIN (DIPSTICK) 2+ (Negative); URINE SPECIFIC GRAVITY 1.025 (1.005-1.035)
[2021-03-06 10:51] LABS: URINE CLARITY HAZY; URINE LEUKOCYTES-REFLEX 1+ (Negative)
[2021-03-06 10:52] LABS: ICTOTEST (BILI CONFIRMATORY) Negative (Negative); URINE BILIRUBIN NEGATIVE (Negative)
[2021-03-06 11:01] LABS: ABSOLUTE NEUTROPHILS 11.4 thou/uL (1.4-8.2); BASOPHILS 0.2 % (0.0-2.0); EOSINOPHILS 0.1 % (0.0-3.0); HEMATOCRIT 32.8 % (37.0-47.0); LYMPHOCYTES 2.9 % (24.0-44.0); MCH 29.1 pg (26.0-34.0); MCHC 33.5 g/dL (28.0-37.0); MCV 86.8 fL (80.0-100.0); MONOCYTES 4.6 % (1.0-8.0); PLATELET COUNT 196 thou/uL (150-400); POLYS 92.2 % (36.0-66.0); RBC 3.78 mil/uL (4.20-5.00); RDW 15.9 % (10.5-14.5); WBC 12.4 thou/uL (4.0-11.0)
[2021-03-06 11:14] LABS: CALCIUM 7.7 mg/dL (8.5-10.1); CREATININE 1.3 mg/dL (0.6-1.0); POTASSIUM 3.3 mmol/L (3.5-5.1)
[2021-03-06 11:16] LABS: CASTS None Seen /LPF (None Seen); CRYSTALS None Seen /LPF (None Seen); SQUAMOUS 4-10 Moderate /LPF (0-3); URINE RBC 3-10 Few /HPF (NONE SEEN)
[2021-03-06 11:20] LABS: ALBUMIN 2.5 g/dL (3.4-5.0); DIRECT BILIRUBIN 0.2 mg/dL (<0.1-0.2); TOTAL BILIRUBIN 0.5 mg/dL (0.2-1.0); TOTAL PROTEIN 7.3 g/dL (6.4-8.2)
[2021-03-06] MEDS ORDERED: CEFPODOXIME PR200 M1 PO (14:08)
[2021-03-06 15:30] LABS: CALCIUM 6.7 mg/dL (8.5-10.1); CREATININE 1.2 mg/dL (0.6-1.0)
[2021-03-06 15:43] LABS: POTASSIUM 2.9 mmol/L (3.5-5.1)
[2021-03-06 19:16] VITALS: BP 133/92
[2021-03-06 19:53] VITALS: BP 136/84
[2021-03-07 00:35] VITALS: BP 122/84
--- NOTE | 2021-03-07 02:48 | NUR ---
PT ADMITTED TO THE UNIT WITH C/O LT FLANK PAIN,HYPOKALEMIA AND VOMITING X2 DAYS .PT IS A/O X4.PT IS UP AD JAK AND EDUCATED TO CALL FOR HELP .IV ACCESS ON LT AC WITH NS WITH POTASSIUM AT 75CC/HR.PT IS ON ROOM AIR.PAIN MANAGED WITH NORCO AND MORPHINE WITH PARTIAL RELIEF.WILL CONTINUE TO MONITOR PER POC
[2021-03-07 04:20] VITALS: BP 139/89
[2021-03-07 05:41] LABS: ABSOLUTE NEUTROPHILS 6.3 thou/uL (1.4-8.2); BASOPHILS 0.3 % (0.0-2.0); EOSINOPHILS 1.7 % (0.0-3.0); HEMATOCRIT 30.2 % (37.0-47.0); HEMOGLOBIN 9.7 gm/dL (12.0-15.0); LYMPHOCYTES 7.2 % (24.0-44.0); MCH 29.1 pg (26.0-34.0); MCV 91.1 fL (80.0-100.0); MONOCYTES 5.6 % (1.0-8.0); PLATELET COUNT 145 thou/uL (150-400); POLYS 85.2 % (36.0-66.0); RBC 3.31 mil/uL (4.20-5.00); WBC 7.4 thou/uL (4.0-11.0)
[2021-03-07 06:12] LABS: CALCIUM 7.3 mg/dL (8.5-10.1); CREATININE 1.2 mg/dL (0.6-1.0); MAGNESIUM 2.2 mg/dL (1.8-2.4)
[2021-03-07 06:32] LABS: POTASSIUM 3.9 mmol/L (3.5-5.1)
[2021-03-07 07:53] VITALS: BP 131/93
[2021-03-07 12:00] VITALS: BP 120/81
[2021-03-07 16:43] VITALS: BP 137/88
--- NOTE | 2021-03-07 17:53 | NUR ---
TREAT PT'S PAIN WITH MORPHIINE IV AND HYDROCODONE PO. PT UP TO BATHROOM AND AROUND ROOM. CONTINUE IVF AND IV ABXS. WILL CONTINUE TO ASSESS.
[2021-03-07 19:37] VITALS: BP 139/96
[2021-03-08 04:30] VITALS: BP 153/95
--- NOTE | 2021-03-08 04:30 | NUR ---
Pt. voiced that she had thrown up in the trash can and was nausea. She also c/o being hot and skin hot upon touch. Temperature was 102.5 oral. Zofran given for nausea/vomiting and tylenol given for elevated temperature (see emar). O2 saturation was 79% on room air and 02 placed on via nasal canula. Eileen PRETTY called and notified of patients condition. New order for chest x-ray and breathing treatments (see cpoe).
[2021-03-08 08:15] VITALS: BP 137/93
[2021-03-08 09:03] LABS: BE(vivo) -6.1 mmol/L (-2 to +3); HCO3 17.8 mmol/L (22.0-26.0); PCO2 30.2 mmHg (35.0-45.0); pH 7.389 (7.360-7.450); sO2 87.1 % (92.0-98.0)
[2021-03-08 09:04] LABS: PO2 52.1 mmHg (80.0-100.0)
[2021-03-08 10:21] LABS: ABSOLUTE NEUTROPHILS 4.7 thou/uL (1.4-8.2); BASOPHILS 0.5 % (0.0-2.0); EOSINOPHILS 2.2 % (0.0-3.0); HEMATOCRIT 34.9 % (37.0-47.0); HEMOGLOBIN 11.1 gm/dL (12.0-15.0); LYMPHOCYTES 13.9 % (24.0-44.0); MCH 28.5 pg (26.0-34.0); MCHC 31.8 g/dL (28.0-37.0); MCV 89.7 fL (80.0-100.0); MONOCYTES 9.1 % (1.0-8.0); PLATELET COUNT 199 thou/uL (150-400); POLYS 74.3 % (36.0-66.0); RBC 3.89 mil/uL (4.20-5.00); RDW 15.9 % (10.5-14.5); WBC 6.3 thou/uL (4.0-11.0)
[2021-03-08 10:30] LABS: CALCIUM 8.5 mg/dL (8.5-10.1); CREATININE 1.1 mg/dL (0.6-1.0); MAGNESIUM 1.8 mg/dL (1.8-2.4); POTASSIUM 3.6 mmol/L (3.5-5.1)
[2021-03-08 12:05] VITALS: BP 145/93
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
--- NOTE | 2021-03-08 15:44 | NUR ---
Assumed pt care at 7am.Pt in and out of bed to bathroom with sba.Assessment completed.vss.But elevated bp noted.Dr Zarate aware.Medicated pt with oral and iv pain shot as needed with relief. Received abg report from RT and notified Dr Zarate, order noted. Pt went for cta pe protocol. Report reveiwed by Dr Zarate Consult called to Dr Monroe.Pt mom here early this shift,updates given. Will continue to monitor.
[2021-03-08 17:03] VITALS: BP 128/82
[2021-03-08 20:18] VITALS: BP 136/96
--- NOTE | 2021-03-09 03:24 | NUR ---
Pt. rested quietly at intervals during the night when checked on during frequent rounds. She has been given pain meds (see emar) for c/o left sided flank pain with some relief noted. No c/o nausea. Up ad renée to the bathroom.
[2021-03-09 04:28] VITALS: BP 129/83
[2021-03-09 07:20] VITALS: BP 130/80
[2021-03-09 12:30] VITALS: BP 116/75
--- NOTE | 2021-03-09 14:14 | NUR ---
ASSUMED PT CARE THIS AM. PT A&OX4, ABLE TO MAKE NEEDS KNOWN. PATIENT REMAINS CONTINENT, AND IS UP INDEPENDENTLY IN ROOM. PATIENT COMPLAINS OF LEFT FLANK PAIN, MANAGED WITH PAIN MEDICATIONS PER EMAR. PATIENT DENIES HAVING ANY NUMBNESS, TINGLING, OR NAUSEA. PATIENT ON 3 LITERS OF OXYGEN VIA NC. PATIENT REMAINS ON TELE. MEDICAITONS TAKEN WITHOUT ISSUE. IV REMAINS PATENT. CALL LIGHT WITHIN REACH.
[2021-03-09 16:36] VITALS: BP 131/92
[2021-03-09 20:23] VITALS: BP 145/100
--- NOTE | 2021-03-10 01:08 | NUR ---
PT C/O FLANK PAIN,MANAGED WITH MED.PT UP ADLIB IN THE ROOM.PT ALERT/CALM, PLEASANT AND COPERATIVE WITH CARE.NO CONCERNS NOTED SO FAR.PT ABLE TO MAKE HER NEEDS KNOWN.CALL LIGHT WITHIN REACH.
[2021-03-10 01:28] VITALS: BP 153/99
[2021-03-10 05:58] VITALS: BP 167/109
[2021-03-10 07:53] VITALS: BP 149/93
[2021-03-10 15:40] VITALS: BP 149/102
[2021-03-10 20:00] VITALS: BP 147/104
[2021-03-11 00:09] VITALS: BP 155/107
[2021-03-11 04:46] VITALS: BP 155/94
--- NOTE | 2021-03-11 07:39 | NUR ---
ASSUMED CARE OF PT AT 1900. PT ASSESSED TO BE 21F WITH PYLONEPHRITIS AND SOA. PT RESTED IN ROOM QUIETLY THOUGHOUT THE NIGHT WITH NO COMPLAINTS, VSS. PAIN CONTROLLED WITH HYDROCODONE AND MORPHINE. AMBULATES TO THE BATHROOM AD JAK AND HAS BEEN NPO SINCE MIDNIGHT FOR BRONCHOSCOPY IN AM - CONSENT ON CHART. SR ON THE MONITOR, SOA CONTROLLED WITH 2L NC. WILL PASS ON ALL INFORMATION AND CONT TO MONITOR.
[2021-03-11 08:20] VITALS: BP 142/94
--- NOTE | 2021-03-11 14:10 | NUR ---
PT CONTINUES ON 2L O2. PT IS TO HAVE A BRONCHOSCOPY TOMORROW. CM FOLLOWING REGARDING DC PLANNING.
--- NOTE | 2021-03-11 17:13 | NUR ---
PT ALERT AND ORIENTED TIMES FOUR. VSS, IVF INFUSING PER ORDER. PT C/O PAIN PRN PAIN MEDICATIONS GIVE WITH SOME RELEIF. PT TOLERATES MEDS AND MEALS. WILL BE NPO AFTER MIDNIGHT FOR BROCH TOMORROW.
[2021-03-11 19:59] VITALS: BP 145/93
[2021-03-12 04:14] VITALS: BP 146/96
--- NOTE | 2021-03-12 06:11 | NUR ---
ASSUMED CARE OF PT AT 1900. PT IS AOX4 21F WITH SOA AND PYLENONEPHRITIS. PT RESTED IN ROOM THROUGHOUT THE NIGHT WITH NO COMPLAINTS, VSS. PAIN CONTROLLED WITH HYDRO AND MORPHINE IV. AMBULATES TO THE RESTROOM AD JAK AND HAS 2L FOR SOA. HAS BEEN NPO SINCE MIDNIGHT FOR BRONCHOSCOPY AT 11. RUNS SINUS ON TELE, WILL CONT TO MONITOR.
[2021-03-12 08:20] VITALS: BP 146/82
--- NOTE | 2021-03-12 11:43 | NUR ---
PT IS ALERT AND ORIENTED X4. SR ON THE MONITOR. PT WAS PLACED ON RA AND IS TOLERATING WELL. NO COMPLAINTS OF PAIN OR DISCOMFORT AT THIS TIME. WILL CONTINUE TO MONITOR.
--- NOTE | 2021-03-12 14:46 | NUR ---
PT HAD BRONCH THIS AFTERNOON. PT IS ON ROOM AIR NOW. CM FOLLOWING REGARDING DC NEEDS. IT IS ANTICIPATED THAT PT SHOULD BE ABLE TO DC HOME TO SELF CARE ONCE MEDICALLY STABLE.
[2021-03-12 14:50] LABS: BF NUCLEATED CELLS 422 /mm3; BF RBC 5854 /mm3
[2021-03-12 14:51] LABS: CLARITY HAZY; COLOR STRAW; TOTAL VOLUME 10 mL
[2021-03-12 15:59] VITALS: BP 128/73
[2021-03-12 16:25] LABS: HEMATOCRIT 30.1 % (37.0-47.0); HEMOGLOBIN 10.2 gm/dL (12.0-15.0); MCH 29.1 pg (26.0-34.0); MCHC 33.8 g/dL (28.0-37.0); RBC 3.5 mil/uL (4.20-5.00); RDW 16.3 % (10.5-14.5); WBC 6.8 thou/uL (4.0-11.0)
[2021-03-12 16:44] LABS: CALCIUM 8.9 mg/dL (8.5-10.1); MAGNESIUM 1.5 mg/dL (1.8-2.4); POTASSIUM 3.9 mmol/L (3.5-5.1)
[2021-03-12 18:08] LABS: BF MACROPHAGE 2 %; BF NEUTROPHILS 89 %; SOURCE RESP BRONCH WASH
[2021-03-12 19:49] VITALS: BP 131/84
[2021-03-13 00:40] VITALS: BP 137/86
[2021-03-13 05:09] VITALS: BP 138/77
--- NOTE | 2021-03-13 06:02 | NUR ---
ASSUMED CARE OF PT AT 1900. PT CONTINUES TO BE 21F HERE FOR INFECTION AND SOA AOX4 WITH MINIMAL NEEDS. DURING THE DAY RT TX ALLOWED HER TO WEAN OFF O2. STABLE THROUGHOUT THE NIGHT WITH NO COMPLAINTS, VSS. IV ANTIBIOTICS FOR PNEUMONIA. AMBULATES TO THE BATHROOM AD JAK AND STEADY. PAIN CONTROLLED WITH ORAL AND IV PAIN MEDS, LESS FREQUENTLY THAN LAST FEW NIGHTS. TRANSFERRING TO NEW ROOM ON 4S IN AM FOR STAFFING. WILL PASS ALL INFORMATION ON TO DAY SHIFT RN. WILL CONT TO MONITOR.
[2021-03-13 08:15] VITALS: BP 149/96
--- NOTE | 2021-03-13 08:26 | NUR ---
Assess for length of stay. Admit with respiratory failure, pneumonia and pyelonephritis. Has been tolerating meals, wt stable around 155 lb since 12/2019. Does have hx etoh abuse, so would recommend thiamine and folic acid supplemementation. Eating 65-100%. Physician has indicated protein calorie malnutrition: RD will defer. Low nutrition risk
--- NOTE | 2021-03-13 09:12 | NUR ---
ORDERS RECEIVED FOR EVAL AND TREAT. Pt IS UP AD JAK. SPOKE WITH Pt WHO STATES SHE IS HAVING NO DIFFICULTY WITH MOBILITY. Pt STATES SHE DOES NOT FEEL WEAK OR OFF BALANCE. Pt DECLINING A FORMAL P.T. EVAL BUT APPEARS SAFE FOR HOME WHEN MEDICALLY CLEAR.
--- NOTE | 2021-03-13 10:30 | NUR ---
Discussed during los with the attending physician, possible dc home today. She is on IV ABX, to follow up and see if ABX can be changed to PO at discharge. Anticipated dc home no needs.
--- NOTE | 2021-03-13 11:49 | NUR ---
Assumed care of pt at 0700. Pt a&ox4. C/o flank pain. Prn pain medications administered. Up ad renée. IVF and IV antibiotics infusing. Call light within reach. Will continue to monitor.
[2021-03-13] MEDS ORDERED: ACETAMINOPHEN325 M1 PO (13:56)
[2021-03-13] MEDS ORDERED: AUGMENTIN 875-1 EACH PO (13:56)
[2021-03-13 14:00] VITALS: BP 149/96
--- NOTE | 2021-03-14 15:08 | PATH ---
[facility] [address] [place] [address] PATHOLOGY RPT PROCEDURE Name: ANTHONY JEROME ORQUIDEA Room #: 448-P [facility] IN .R.#: [id number] Admission: 03/06/21 Date of : 89 Discharge: 03/13/21 Report #: [id number] Path Case #: [id number] Note [facility] Accession Number: [id number] TESTS RESULT FLAG UNITS REF RANGE LAB Clinician Provided Cytology Information No. of containers..01 Other (Miscellaneous) Source: BRUSH TIP RUL DIAGNOSIS: 02 BRUSH TIP RUL NEGATIVE FOR MALIGNANT CELLS. NORMAL BRONCHIAL CELLS AND MACROPHAGES ARE PRESENT. PULMONARY MACROPHAGES PRESENT, INDICATIVE OF LOWER RESPIRATORY TRACT SAMPLING. RED BLOOD CELLS ARE PRESENT. THIS INTERPRETATION INCLUDES EVALUATION OF A CELL BLOCK. Signed out by: 02 Cici Garces MD, Pathologist NPI- [id number] Performed by: 01 Alida Morales, Drywall Worker ([facility]) Gross description: 01 2ML, CLOUDY, RED /LCS 03/13/2021 1625 Local FLAG LEGEND: L-Low Normal,H-High Normal,LL-Alert Low,HH-Alert High <-Panic Low,>-Panic High,A-Abnormal,AA-Critical Abnormal Performed at: [address] [place] [address] Nitin Powell MD, [address] [address] Lucía Knutson MD, Specimen Comment: A courtesy copy of this report has been sent to [phone] Specimen Comment: Report sent to Performed at: [address], [place], [place] [id number] MD Nitin Powell MD Phone: [phone]
== END 2021-03-13 14:13 | disposition home or self-care (01) | DRG 871 ==
LOC: ER 10:31 → 4W 17:08 → EROBS 17:08 → 4W 19:26 → 4S 03-13 06:09
PROVIDERS: Nurse Practitioner; Pediatrics; Student in an Organized Health Care Education/Training Program; ADMIT Internal Medicine; ATTEND Internal Medicine
PROC: 0BDF8ZX Extraction of Right Lower Lung Lobe, Via Natural or Artificial Opening Endoscopic, Diagnostic (ICD-10-PCS; principal; 2021-03-12)
DX: A41.9 Sepsis, unspecified organism (principal); G92.8 Other toxic encephalopathy; N17.0 Acute kidney failure with tubular necrosis; J96.01 Acute respiratory failure with hypoxia; J18.9 Pneumonia, unspecified organism; N12 Tubulo-interstitial nephritis, not specified as acute or chronic; E44.0 Moderate protein-calorie malnutrition; J45.909 Unspecified asthma, uncomplicated; E87.6 Hypokalemia; F17.210 Nicotine dependence, cigarettes, uncomplicated; F19.10 Other psychoactive substance abuse, uncomplicated; K76.0 Fatty (change of) liver, not elsewhere classified; E66.01 Morbid (severe) obesity due to excess calories; R53.81 Other malaise; Z20.822 Contact with and (suspected) exposure to COVID-19; Z68.27 Body mass index [BMI] 27.0-27.9, adult; Z91.010 Allergy to peanuts
CPT/HCPCS: 10045; 50010; 62110; 62900; 70005

== ENCOUNTER 2021-03-24 01:04 | Emergency (ER) | payer OTHER ==
[~2021-03-24] VITALS: Ht 157.5 cm; Wt 54.4 kg
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
[~2021-03-24 01:04] MED LIST changes: +AUGMENTIN 875-1 EACH PO; +CEFPODOXIME PR200 M1 PO
[2021-03-24 03:25] LABS: ABSOLUTE NEUTROPHILS 5.1 thou/uL (1.4-8.2); BASOPHILS 1.8 % (0.0-2.0); EOSINOPHILS 3.5 % (0.0-3.0); HEMATOCRIT 36.6 % (37.0-47.0); HEMOGLOBIN 11.9 gm/dL (12.0-15.0); LYMPHOCYTES 34.5 % (24.0-44.0); MCH 28.5 pg (26.0-34.0); MCHC 32.6 g/dL (28.0-37.0); MCV 87.7 fL (80.0-100.0); MONOCYTES 2.7 % (1.0-8.0); PLATELET COUNT 565 thou/uL (150-400); POLYS 57.5 % (36.0-66.0); RBC 4.18 mil/uL (4.20-5.00); RDW 16.7 % (10.5-14.5); WBC 8.9 thou/uL (4.0-11.0)
[2021-03-24 03:34] LABS: ALBUMIN 3.7 g/dL (3.4-5.0); ANION GAP 18 mmol/L (7-16); BUN 12 mg/dL (7-18); CALCIUM 8.8 mg/dL (8.5-10.1); CHLORIDE 108 mmol/L (98-107); CO2 21 mmol/L (21-32); CREATININE 1.1 mg/dL (0.6-1.0); DIRECT BILIRUBIN < 0.1 mg/dL (<0.1-0.2); GLUCOSE 113 mg/dL (74-106); LIPASE 115 U/L (73-393); POTASSIUM 3.2 mmol/L (3.5-5.1); SALICYLATE 7.6 mg/dL (2.8-20.0); SGOT 24 U/L (15-37); SGPT 22 U/L (14-59); SODIUM 147 mmol/L (136-145); TOTAL BILIRUBIN 0.1 mg/dL (0.2-1.0); TOTAL PROTEIN 8.8 g/dL (6.4-8.2)
[2021-03-24 04:53] LABS: URINE BILIRUBIN NEGATIVE (Negative); URINE BLOOD NEGATIVE (Negative); URINE CLARITY CLEAR; URINE COLOR YELLOW; URINE GLUCOSE-RANDOM* NEGATIVE (Negative); URINE KETONES NEGATIVE (Negative); URINE LEUKOCYTES-REFLEX TRACE (Negative); URINE NITRITE-REFLEX NEGATIVE (Negative); URINE PROTEIN (DIPSTICK) NEGATIVE (Negative); URINE UROBILINOGEN 0.2 E.U./dl (0.2-1.0)
[2021-03-24 04:59] LABS: AMP/METHAMP Negative (Negative); BARBITURATES Negative (Negative); BENZODIAZEPINES Negative (Negative); COCAINE Negative (Negative); METHADONE Negative (Negative); OPIATES Negative (Negative); PCP Negative (Negative)
[2021-03-24 11:10] VITALS: BP 123/68
== END 2021-03-24 11:10 | disposition home or self-care (01) ==
LOC: ER 01:04
PROVIDERS: Student in an Organized Health Care Education/Training Program
DX: S01.81XA Laceration without foreign body of other part of head, initial encounter (principal); F10.129 Alcohol abuse with intoxication, unspecified; J45.909 Unspecified asthma, uncomplicated; Z98.890 Other specified postprocedural states; Z79.899 Other long term (current) drug therapy; Z91.010 Allergy to peanuts; W10.9XXA Fall (on) (from) unspecified stairs and steps, initial encounter; Y93.89 Activity, other specified; Y92.89 Other specified places as the place of occurrence of the external cause; Y99.8 Other external cause status

== ENCOUNTER 2021-05-05 18:06 | Emergency (ER) | payer OTHER ==
[~2021-05-05] VITALS: Ht 160 cm; Wt 72.6 kg
[2021-05-05 19:48] VITALS: BP 148/92
== END 2021-05-05 19:48 | disposition home or self-care (01) ==
LOC: ER 18:06
DX: J06.9 Acute upper respiratory infection, unspecified (principal); Z20.822 Contact with and (suspected) exposure to COVID-19; J02.9 Acute pharyngitis, unspecified; J45.909 Unspecified asthma, uncomplicated; Z91.010 Allergy to peanuts